=== PATIENT | male | born 1940 | race Caucasian/White ===

== ENCOUNTER 2018-08-23 01:01 | Emergency (ER) | payer OTHER ==
[~2018-08-23] VITALS: Ht 165.1 cm; Wt 59.0 kg
[2018-08-23 01:01] VITALS: BP_SYST 159
--- NOTE | 2018-08-23 01:05 | NUR ---
Pt BIB BLS, sent from [facility] per PMD request. Pt was seen this AM by PMD with Dx Small Bowel Obstruction. Pt c/o mild abdominal pain 08/28, no N/V/D. Denies c/o C/P or SOB.
--- NOTE | 2018-08-23 01:05 | NUR ---
Patient to ER bed 5 for evaluation.
--- NOTE | 2018-08-23 01:10 | NUR ---
Dr. Elizabeth at bedside.
[2018-08-23] MEDS ORDERED: NS 500 ML IV ONE (01:15)
--- NOTE | 2018-08-23 01:15 | NUR ---
X-ray at bedside.
--- NOTE | 2018-08-23 01:20 | NUR ---
# 20 gauge angiocath placed to RAC. Use of asceptic technique. Opsite placed over site. Blood return noted. Blood for lab drawn from site. Flushed with 10 cc of normal saline. No evidence of infiltration noted. Patient tolerated well.
--- NOTE | 2018-08-23 01:37 | NUR ---
Pt to CT via stretcher in stable condition.
--- NOTE | 2018-08-23 01:45 | NUR ---
Pt returns from CT. No needs verbalized at this time.
[2018-08-23 01:49] LABS: HEMATOCRIT 40.5 % (36-54); HEMOGLOBIN 13.3 g/dL (14.0-18.0); MEAN CORPUSCULAR HEMOGLOBIN 27 pg (27-31); MEAN CORPUSCULAR HGB CONC 33 % (32-36); MEAN CORPUSCULAR VOLUME 83 fL (79.0-98.0); PLATELET COUNT (AUTO) 267 K/uL (130-430); RED CELL DISTRIBUTION WIDTH 13.1 % (9.0-15.0); WHITE BLOOD COUNT (AUTO) 6.9 K/uL (4.8-10.8)
[2018-08-23 01:50] LABS: BASOPHILS # (AUTO) 0.1 K/uL (0.0-0.2); BASOPHILS % (AUTO) 1.1 % (0.0-2.0); EOSINOPHILS # (AUTO) 0.1 K/uL (0.0-0.4); LYMPHOCYTES # (AUTO) 1.1 K/uL (1.0-5.5); LYMPHOCYTES % (AUTO) 16.1 % (20.5-51.5); MONOCYTES # (AUTO) 0.7 K/uL (0.0-1.0); MONOCYTES % (AUTO) 9.8 % (1.7-9.3); NEUTROPHILS # (AUTO) 4.9 K/uL (1.8-7.7)
[2018-08-23] MEDS ORDERED: MOM PO (02:00)
[2018-08-23] MEDS ORDERED: CRAN450C PO (02:00)
[2018-08-23] MEDS ORDERED: CLOP300T2 PO (02:00)
[2018-08-23] MEDS ORDERED: OXYC-580 PO (02:00)
[2018-08-23] MEDS ORDERED: SSNOVOLOG SUBCUT (02:00)
[2018-08-23] MEDS ORDERED: ACET325T53 PO (02:00)
[2018-08-23] MEDS ORDERED: MELA3TAB PO (02:00)
[2018-08-23] MEDS ORDERED: PRO40 PO (02:00)
[2018-08-23] MEDS ORDERED: ZIN220 PO (02:00)
[2018-08-23] MEDS ORDERED: MAGN400T10 PO (02:00)
[2018-08-23] MEDS ORDERED: WARF4TAB2 PO (02:00)
[2018-08-23] MEDS ORDERED: LEVE500T9 PO (02:00)
[2018-08-23] MEDS ORDERED: DOCU250C14 PO (02:00)
[2018-08-23] MEDS ORDERED: MULT1CAP34 PO (02:00)
[2018-08-23] MEDS ORDERED: LIP80 PO (02:00)
[2018-08-23] MEDS ORDERED: ASCO500T20 PO (02:00)
--- NOTE | 2018-08-23 02:00 | NUR ---
Medication reconciliation completed with information provided by facility. Any prior medication reconciliation on file was reviewed and corrected.
[2018-08-23 02:11] LABS: CHLORIDE 103 mmol/L (98-107); POTASSIUM 3.5 mmol/L (3.5-5.1); SODIUM SERUM 138 mmol/L (136-145)
[2018-08-23 02:12] LABS: PROTHROMBIN TIME 10.5 SECS (9.5-12.5)
[2018-08-23 02:12] LABS: ANION GAP 7 (5-15); CALCIUM 8.9 mg/dL (8.4-11.0); CREATININE 0.57 mg/dL (0.55-1.30); GLUCOSE 96 mg/dL (70-99); UREA NITROGEN, BLOOD 12 mg/dL (8-21)
[2018-08-23 02:13] LABS: ALANINE AMINOTRANSFERASE 23 U/L (12-78); ALBUMIN 3.1 g/dL (3.4-4.8); ASPARTATE AMINOTRANSFERASE 18 U/L (10-37); TOTAL BILIRUBIN 0.5 mg/dL (0.0-1.0)
--- NOTE | 2018-08-23 03:52 | NUR ---
Pt report called to DENNISE Daley at [facility].
[2018-08-23 03:55] VITALS: BP_SYST 141
--- NOTE | 2018-08-23 14:02 | NUR ---
Final CT report faxed to Rosalina at [facility].
== END 2018-08-23 03:55 | disposition home or self-care (01) ==
LOC: SED 01:01
DX: R10.9 Unspecified abdominal pain (principal); R03.0 Elevated blood-pressure reading, without diagnosis of hypertension; Z88.8 Allergy status to other drugs, medicaments and biological substances; Z79.899 Other long term (current) drug therapy
CPT/HCPCS: 36415; 71045; 74176; 80053; 83605; 84484; 85025; 85610; 85730; 87040; 93005; 99284; J7040